=== PATIENT | male | born 1960 | race Caucasian/White ===

== ENCOUNTER 2022-11-19 15:03 | Observation (INO) | payer OTHER, MEDICARE ==
[~2022-11-19] VITALS: Ht 177.8 cm; Wt 67.9 kg
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
[2022-11-19 15:41] LABS: ALBUMIN 3.8 GM/DL (3.2-4.5); CHLORIDE 103 MMOL/L (98-107); POTASSIUM 3.7 MMOL/L (3.6-5.0); SODIUM 139 MMOL/L (135-145)
[2022-11-19 15:42] LABS: CALCIUM 8.9 MG/DL (8.5-10.1)
[2022-11-19 15:43] LABS: GLUCOSE 75 MG/DL (70-105)
[2022-11-19 15:44] LABS: CARBON DIOXIDE 25 MMOL/L (21-32); TOTAL PROTEIN 6.6 GM/DL (6.4-8.2)
[2022-11-19 15:45] LABS: BILIRUBIN,TOTAL 0.6 MG/DL (0.1-1.0)
[2022-11-19 15:47] LABS: ALKALINE PHOSPHATASE 71 U/L (40-136); CREATININE SERUM 1.07 MG/DL (0.60-1.30); GFR ESTIMATED 78
[2022-11-19 15:48] LABS: BASOPHILS # (AUTO) 0.1 10^3/uL (0.0-0.1); BASOPHILS % (AUTO) 1 % (0-10); BUN/CREATININE RATIO 19; EOSINOPHILS # (AUTO) 0.3 10^3/uL (0.0-0.3); EOSINOPHILS % (AUTO) 5 % (0-10); HEMATOCRIT 38 % (40-54); HEMOGLOBIN 12.5 g/dL (13.3-17.7); LYMPHOCYTES # (AUTO) 2.9 10^3/uL (1.0-4.0); LYMPHOCYTES % (AUTO) 44 % (12-44); MEAN CORPUSCULAR HEMOGLOBIN 31 pg (25-34); MEAN CORPUSCULAR HGB CONC 33 g/dL (32-36); MEAN CORPUSCULAR VOLUME 94 fL (80-99); MONOCYTES # (AUTO) 0.7 10^3/uL (0.0-1.0); MONOCYTES % (AUTO) 11 % (0-12); NEUTROPHILS # (AUTO) 2.5 10^3/uL (1.8-7.8); NEUTROPHILS % (AUTO) 39 % (42-75); PLATELET COUNT 233 10^3/uL (130-400); WHITE BLOOD COUNT 6.5 10^3/uL (4.3-11.0)
[2022-11-19 15:50] LABS: ALANINE AMINOTRANSFERASE 29 U/L (0-55)
--- NOTE | 2022-11-19 16:08 | Diagnostic Imaging Report ---
EXAMINATION: CT head without contrast. TECHNIQUE: Multiple contiguous axial images were obtained through the brain without the use of intravenous contrast. All CT scans use one or more of the following dose optimizing techniques: automated exposure control, MA and/or KvP adjustment based on patient size and exam type or iterative reconstruction. HISTORY: syncope vs seizure COMPARISON: None available. FINDINGS: The ventricles and sulci are normal. No abnormal attenuation of brain parenchyma is present. No acute intracranial hemorrhage or abnormal extra-axial fluid collections are present. Calcification of the intracranial ICAs. No hyperdense vessel. The calvarium is intact. The mastoid air cells are clear. The visualized paranasal sinuses are clear. The orbits are normal. IMPRESSION: 1. No acute intracranial abnormality. Dictated by: Dictated on workstation # [id number]
[2022-11-19] MEDS ORDERED: LACTATED RINGERS 1,000 ML IV SCH (17:00)
[2022-11-19] MEDS ORDERED: HYDROmorphone (DILAUDID) 2 MG TAB PO ONE (17:00)
[2022-11-19 18:08] VITALS: BP 116/74
[2022-11-19 18:37] VITALS: BP 124/82
[2022-11-19] MEDS: NS IV 1000 ML 1,000 ML IV SCH (18:52)
[2022-11-19] MEDS ORDERED: TAMSULOSIN 0.4 MG (FLOMAX) CAP PO SCH (19:00)
[2022-11-19] MEDS ORDERED: RT-ALBUTEROL SULF 2.5 MG/3 ML PRE-MIX VIAL INH PRN (19:00)
[2022-11-19 20:01] VITALS: BP 113/55
[2022-11-19 20:15] LABS: AMPHETAMINE SCREEN, URINE NEGATIVE (NEGATIVE); BARBITURATE SCREEN URINE NEGATIVE (NEGATIVE); BENZODIAZEPINES SCREEN URINE POSITIVE (NEGATIVE); CANNABINOID SCREEN, URINE POSITIVE (NEGATIVE); COCAINE SCREEN URINE NEGATIVE (NEGATIVE); METHADONE STAT NEGATIVE (NEGATIVE); OPIATE SCREEN URINE POSITIVE (NEGATIVE); OXYCODONE STAT NEGATIVE (NEGATIVE); PROPOXYPHENE STAT NEGATIVE (NEGATIVE); TRICYCLIC ANTIDEPRESSANTS SCRE NEGATIVE (NEGATIVE)
[2022-11-19] MEDS ORDERED: hydrOXYzine (VISTARIL/ATARAX) 25 MG capsule/tablet PO SCH (21:00)
[2022-11-19] MEDS ORDERED: OLANZapine 2.5 MG (ZyPREXA) TAB PO SCH (21:00)
[2022-11-19] MEDS ORDERED: traZODone 100 MG (DESYREL) TAB PO SCH (21:00)
[2022-11-19] MEDS: busPIRone 15 MG (BUSPAR) TABLET PO SCH (21:05)
[2022-11-19] MEDS: HYDROmorphone (DILAUDID) 2 MG TAB PO PRN ×2 (21:08→22:43)
[2022-11-19 23:41] VITALS: BP 96/56
[2022-11-20 00:20] LABS: BILIRUBIN,URINE NEGATIVE (NEGATIVE); CLARITY,URINE CLEAR; COLOR,URINE YELLOW; GLUCOSE, URINE (UA) NEGATIVE (NEGATIVE); KETONES,URINE NEGATIVE (NEGATIVE); LEUKOCYTE ESTERASE ,URINE NEGATIVE (NEGATIVE); NITRITE,URINE NEGATIVE (NEGATIVE); PH,URINE 7.5 (5-9); PROTEIN,URINE NEGATIVE (NEGATIVE)
[2022-11-20 00:30] LABS: BACTERIA,URINE NEGATIVE /HPF; SQUAMOUS EPITHELIAL CELL,UR RARE /HPF; WBC,URINE RARE /HPF
[2022-11-20 03:27] VITALS: BP 92/57
[2022-11-20] MEDS: HYDROmorphone (DILAUDID) 4 MG TAB PO PRN ×2 (04:25→05:08)
[2022-11-20] MEDS: NS IV 1000 ML 1,000 ML IV SCH (04:26)
[2022-11-20 08:00] VITALS: BP 105/70
[2022-11-20] MEDS: busPIRone 15 MG (BUSPAR) TABLET PO SCH (08:12)
[2022-11-20] MEDS ORDERED: PANTOPRAZOLE 40 MG (PROTONIX) TAB PO SCH (09:00)
[2022-11-20] MEDS ORDERED: HYDROmorphone 2 MG/ML VIAL (DILAUDID) IV NR (10:00)
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
--- NOTE | 2022-11-20 11:10 | Discharge Inst-Simple/Standard ---
Discharge Inst-Standard Discharge Medications New, Converted or Re-Newed RX: Transmitted to Pharmacy Patient Instructions/Follow Up Plan of Care/Instructions/FU: Please continue to take your medications as written. Please follow up with your primary care doctor to follow up this hospital stay. It is important for your safety and the safety of others to not drive for the next 6 months or until released by neurology for this. Please follow-up with your primary care physician and with neurology to follow-up this hospital stay. Activity as Tolerated: Yes Discharge Diet: No Restrictions Return to The Hospital For: Chest pain, seizure, passing out, confusion, shortness of breath, fever, weakness, if you feel you are getting worse. KATHY LACKEY MD Nov 20, 2022 11:10
[2022-11-20 12:01] VITALS: BP 117/75
[2022-11-20] MEDS ORDERED: MIRT-68 PO (12:15)
[2022-11-20] MEDS ORDERED: TRAZ-227 PO (12:15)
[2022-11-20] MEDS ORDERED: OLAN10TA71 PO (12:15)
[2022-11-20] MEDS ORDERED: CALC3.8S (12:15)
[2022-11-20] MEDS ORDERED: PANT40TA52 PO (12:15)
[2022-11-20] MEDS ORDERED: CALC-774 PO (12:15)
[2022-11-20] MEDS ORDERED: LORA10TA7 PO (12:15)
[2022-11-20] MEDS ORDERED: HYDR50TA76 PO (12:15)
[2022-11-20] MEDS ORDERED: HYDR2TAB6 PO (12:15)
[2022-11-20] MEDS ORDERED: TMSL.4C PO (12:15)
[2022-11-20] MEDS ORDERED: FAMO40TA6 PO (12:15)
[2022-11-20] MEDS ORDERED: CITA40TA13 PO (12:15)
[2022-11-20] MEDS ORDERED: MULT-1136 PO (12:15)
[2022-11-20] MEDS ORDERED: BUSP15TA60 PO (12:15)
[2022-11-20] MEDS ORDERED: RT-ALBUINH INH (12:15)
[2022-11-20] MEDS ORDERED: LEVE500T6 PO (13:55)
[2022-11-20 14:00] VITALS: BP 117/75
== END 2022-11-20 14:45 | disposition home or self-care (01) ==
LOC: ER 15:04 → 4TH 17:48 → UNDOADMOB 17:48 → 4TH 18:11 → UNDODISOB 11-20 14:45
PROVIDERS: ADMIT Family Medicine; ATTEND Family Medicine
DX: R41.0 Disorientation, unspecified (principal); M54.9 Dorsalgia, unspecified; G89.29 Other chronic pain; N40.0 Benign prostatic hyperplasia without lower urinary tract symptoms; E11.9 Type 2 diabetes mellitus without complications; F17.210 Nicotine dependence, cigarettes, uncomplicated; F32.A Depression, unspecified; Z98.84 Bariatric surgery status
CPT/HCPCS: 36415; 70450; 80053; 80306; 80320; 81000; 82947; 85025; 93005; 94760; 96375; G0378